=== PATIENT | female | born 2000 | race Two or more races ===

== ENCOUNTER 2024-11-29 03:30 | Inpatient (IN) | payer OTHER ==
[2024-11-29] MEDS ORDERED: hydrALAZINE 20 MG/ML VIAL SLOW IVP PRN ×2 (04:03→09:18)
[2024-11-29] MEDS ORDERED: Diphenoxylate HCl/Atropine Tablet PO PRN ×2 (04:03)
[2024-11-29] MEDS ORDERED: Lidocaine 1% (PF) 30 ML VIAL SC PRN (04:03)
[2024-11-29] MEDS ORDERED: Ibuprofen 800 MG TAB PO PRN (04:03)
[2024-11-29] MEDS ORDERED: Carboprost 250 MCG/ML AMP IM PRN (04:03)
[2024-11-29] MEDS ORDERED: Ondansetron PF 4 MG/2 ML Vial IVP PRN ×2 (04:03→09:18)
[2024-11-29] MEDS ORDERED: Acetaminophen 500 MG TAB PO PRN (04:03)
[2024-11-29] MEDS ORDERED: Tranexamic Acid 1,000 MG/10 ML VIAL IVP PRN (04:03)
[2024-11-29] MEDS ORDERED: Methylergonovine 0.2 MG/ML VIAL IM PRN (04:03)
[2024-11-29] MEDS ORDERED: Oxytocin 30 units/NS 500 ML 500 ML IV SCH (04:15)
[2024-11-29 04:26] VITALS: BMI 29.7
[2024-11-29 04:42] LABS: Hematocrit 33.8 % (34.9-44.5); Hemoglobin 11.7 g/dL (12.0-15.5); Mean Corpuscular Hemoglobin 29.9 pg (27.0-33.0); Mean Corpuscular Volume 86.4 fL (81.6-98.3); Platelet Count 220 10x3/uL (150-450); Red Blood Cell (RBC) Count 3.91 10x6/uL (3.90-5.03); White Blood Cell (WBC) Count 10.97 10x3/uL (3.5-10.5)
[2024-11-29 05:18] LABS: Hep B Surf Ag - L&D Non-Reactive S/CO (NonReactive)
[2024-11-29 05:26] LABS: Syphilis Antibody Index 0.08 S/CO (<1.00 Non-Reactive)
[2024-11-29] MEDS: fentaNYL/Ropivacaine Epidural 100 ML ONE (06:40)
[2024-11-29] MEDS: Oxytocin 30 units/NS 500 ML 500 ML IV SCH (07:50)
[2024-11-29] MEDS ORDERED: Bupivacaine 0.25% HCL 30 ML VIAL ONE (09:00)
[2024-11-29] MEDS ORDERED: Lanolin Ointment 7 GM TUBE TOP PRN (09:18)
[2024-11-29] MEDS ORDERED: Bisacodyl 10 MG SUPP PR PRN (09:18)
[2024-11-29] MEDS ORDERED: diphenhydrAMINE 25 MG CAP PO PRN (09:18)
[2024-11-29] MEDS ORDERED: Milk Of Magnesia 30 ML UDCUP PO PRN (09:18)
[2024-11-29] MEDS ORDERED: HYDROcodone/Acetaminophen 5/325 mg Tablet PO PRN (09:18)
[2024-11-29] MEDS: Ibuprofen 800 MG TAB PO SCH (14:33)
[2024-11-29] MEDS: Benzocaine-Menthol 82.5 ML CAN TOP PRN (14:35)
[2024-11-29] MEDS: Preparation H Ointment 28 GM TUBE PR PRN (14:35)
[2024-11-29] MEDS: Ferrous Sulfate 325 MG TAB PO SCH (16:30)
[2024-11-30] MEDS: Boostrix 0.5 ML (Tdap) VIAL (>/=7 yrs of age) IM ONE (07:10)
[2024-11-30 08:20] VITALS: BP 105/62; TEMP 98
== END 2024-11-30 12:40 | disposition home or self-care (01) | DRG 807 ==
LOC: CSHLD/OP 03:30 → CSHLD 04:09 → CSHPP 10:52
PROVIDERS: ADMIT Obstetrics & Gynecology; ATTEND Obstetrics & Gynecology
PROC: 10E0XZZ Delivery of Products of Conception, External Approach (ICD-10-PCS; principal; 2024-11-29)
PROC: 10907ZC Drainage of Amniotic Fluid, Therapeutic from Products of Conception, Via Natural or Artificial Opening (ICD-10-PCS; 2024-11-29)
DX: O62.2 Other uterine inertia (principal); Z37.0 Single live birth; Z3A.39 39 weeks gestation of pregnancy
CPT/HCPCS: 36415; 51702; 85027; 86780; 86850; 86900; 86901; 87340; 99285; J0665; J2590